=== PATIENT | male | born 1960 | race American Indian/Alaskan Native ===

== ENCOUNTER 2020-08-12 05:56 | Day surgery (SDC) | payer MEDICAID ==
[~2020-08-12 05:56] MED LIST: Midazolam 1 MG/ML 2 ML SDV ONE; fentaNYL 100 MCG/2 ML SDV ONE
[2020-08-12] MEDS ORDERED: Midazolam 1 MG/ML 2 ML SDV IV ONE ×7 (05:57→07:47)
[2020-08-12] MEDS ORDERED: fentaNYL 100 MCG/2 ML SDV IV ONE ×5 (05:57→07:49)
[2020-08-12] MEDS ORDERED: Dextrose 5%-0.45% NaCl 1,000 ML IV SCH (06:45)
--- NOTE | 2020-08-12 10:53 | OR ---
DATE: 08/12/2020 PROCEDURE: Total colonoscopy. INSTRUMENT USED: [id number] Olympus video colonoscope. PREMEDICATIONS: Fentanyl 150 mcg intravenous, Versed 4 mg intravenous, nasal O2 cannula. The procedure was done under pulse oximetry, BP recording, and monitoring tech. INDICATION: Screening colonoscopy examination is done for detection of any polypoid lesions and removal, endoscopic hemostasis therapy if needed. DESCRIPTION OF PROCEDURE: Initial rectal exam showed some diffuse mild tenderness. Rigid anoscopy showed moderate-sized internal hemorrhoids without bleeding from them. The colonoscope was passed with ease up to the ileocecal area. Photographs were taken of the normal-appearing cecum identified by landmarks of appendiceal orifice and double bulged ileocecal folds. No bleeding was noted from any of the visualized areas at the commencement of the examination. There was large amount of fecal material. Some solid in consistency limiting visualization of few areas, bowel preparation [place] scale 2 in all the regions, total score 6. No stricture. No vascular ectasia. No large isolated ulcerations seen. No evidence of diffuse inflammatory bowel disease in the form of friability, contact bleeding, or ulcerations. No polyp or tumor mass identified. Probing the proximal sides of folds and flexures using adequate distention and clearing up the stool material, withdrawal of the scope was made, cecum to rectum time over 6 minutes. No bleeding was noted from any of the visualized areas at the completion of examination. IMPRESSION: Internal hemorrhoids. The patient tolerated the procedure well. [facility] /[id number]
[2020-08-12 12:12] VITALS: BP 118/88; PULSE 70
== END 2020-08-12 09:06 | disposition home or self-care (01) ==
LOC: DL.ENDO 05:56
PROVIDERS: ATTEND Internal Medicine Gastroenterology
DX: Z12.11 Encounter for screening for malignant neoplasm of colon (principal); K64.8 Other hemorrhoids; E66.09 Other obesity due to excess calories; E11.9 Type 2 diabetes mellitus without complications; Z88.0 Allergy status to penicillin
CPT/HCPCS: J2250; J3010; J7042

== ENCOUNTER 2020-09-07 10:52 | Emergency (ER) | payer MEDICAID ==
[2020-09-07 10:58] VITALS: BP 133/92; PULSE 103
[2020-09-07 11:28] LABS: ACETAMINOPHEN 0 ug/mL (10-30 (Therapeutic)); ANION GAP 16.9 mEq/L (7-13); CHLORIDE,CL 105 mmol/L (98-107); SODIUM,NA 140 mmol/L (136-145)
--- NOTE | 2020-09-07 11:43 | CR ---
EXAMINATION: Chest 1V Frontal SEX: Male AGE: 60 years CLINICAL HISTORY: 60-year-old male complaining of CHEST PAIN. INTERPRETATION: 1. Old patchy left lower lobe atelectasis/fibrosis unchanged since CT exam 22 July 2020. 2. No new atelectasis or collapse. No alveolar consolidation or peripheral "groundglass" interstitial lung densities. 3. No lung mass or hilar/mediastinal lymphadenopathy. 4. Normal cardiac silhouette. Left-sided aortic arch. Atrophic spondylosis lower thoracic spine. 5. No pneumothorax or pneumomediastinum. Normal midline tracheal bronchial airway. No free subdiaphragmatic air. CONCLUSION: No acute new cardiopulmonary abnormality.
--- NOTE | 2020-09-07 12:32 | EDM.PDOC ---
ED HPI GENERAL MEDICAL PROBLEM - General Chief Complaint: Chest Pain Stated Complaint: CHEST PAIN Time Seen by Provider: 09/07/20 11:05 Source of Information: Reports: Patient History Limitations: Reports: No Limitations - History of Present Illness INITIAL COMMENTS - FREE TEXT/NARRATIVE: This 60 yo male patient reports to the ED due to intermittent left sided chest pain, left shoulder pain and left arm weakness. The patient reports his symptoms have been coming and going for the past 2-3 weeks. The patient reports he did talk to his primary care provider about his symptoms, but nothing was done for him. Onset: Unknown/Unsure Duration: Week(s): Location: Reports: Chest, Upper Extremity, Left Quality: Reports: Ache, Dull Severity: Moderate Improves with: Reports: None Worsens with: Reports: None Context: Reports: Other Associated Symptoms: Reports: No Other Symptoms Chest Pain Score (Numeric/FACES): 8 - Related Data Allergies Allergy/AdvReac Type Severity Reaction Status Date / Time penicillin Allergy Hives Verified 08/12/20 06:30 Home Meds: Home Meds Ibuprofen 800 mg PO DAILY PRN 11/04/14 [History] Thiamine HCl [Vitamin B-1] 100 mg PO DAILY 08/10/20 [History] Past Medical History HEENT History: Reports: Impaired Vision Cardiovascular History: Reports: Angina Respiratory History: Reports: None Gastrointestinal History: Reports: Cirrhosis, Diverticulosis, Hepatitis, Other (See Below) Other Gastrointestinal History: HX OF CHRONIC HEP C Genitourinary History: Reports: None Musculoskeletal History: Reports: Other (See Below) Other Musculoskeletal History: TMJ Neurological History: Reports: None Psychiatric History: Reports: Addiction, Other (See Below) Other Psychiatric History: S/P ALCOHOL HABITUATION. S/P INTRAVENOUS DRUG USE Endocrine/Metabolic History: Reports: Diabetes, Type II, Obesity/BMI 30+ Hematologic History: Reports: None Immunologic History: Reports: None Oncologic (Cancer) History: Reports: None Dermatologic History: Reports: None - Infectious Disease History Infectious Disease History: Reports: Chicken Pox, Hepatitis C - Past Surgical History Head Surgeries/Procedures: Reports: None HEENT Surgical History: Reports: None Cardiovascular Surgical History: Reports: None Respiratory Surgical History: Reports: None GI Surgical History: Reports: Colonoscopy, EGD Male Surgical History: Reports: None Endocrine Surgical History: Reports: None Neurological Surgical History: Reports: None Musculoskeletal Surgical History: Reports: None Oncologic Surgical History: Reports: None Dermatological Surgical History: Reports: None Social & Family History - Family History Family Medical History: No Pertinent Family History - Tobacco Use Tobacco Use Status *Q: Current Every Day Tobacco User Years of Tobacco use: 1 Packs/Tins Daily: 1 - Caffeine Use Caffeine Use: Reports: Coffee Other Caffeine Use: 1 CUP COFFEE DAILY - Recreational Drug Use Recreational Drug Use: No ED ROS GENERAL - Review of Systems Review Of Systems: Comprehensive ROS is negative, except as noted in HPI. ED EXAM, GENERAL - Physical Exam Exam: See Below Exam Limited By: No Limitations General Appearance: Alert, WD/WN, Mild Distress Eye Exam: Bilateral Eye: EOMI, Normal Inspection, PERRL Ears: Normal External Exam, Normal Canal, Hearing Grossly Normal, Normal TMs Nose: Normal Inspection, Normal Mucosa, No Blood Throat/Mouth: Normal Inspection, Normal Lips, Normal Teeth, Normal Gums, Normal Oropharynx, Normal Voice, No Airway Compromise Head: Atraumatic, Normocephalic Neck: Normal Inspection, Supple, Non-Tender, Full Range of Motion Respiratory/Chest: No Respiratory Distress, Lungs Clear, Normal Breath Sounds, No Accessory Muscle Use, Chest Non-Tender Cardiovascular: Normal Peripheral Pulses, Regular Rate, Rhythm, No Edema, No Gallop, No JVD, No Murmur, No Rub GI/Abdominal: Normal Bowel Sounds, Soft, Non-Tender, No Organomegaly, No Distention, No Abnormal Bruit, No Mass (Male) Exam: Deferred Rectal (Males) Exam: Deferred Back Exam: Normal Inspection, Full Range of Motion, NT Extremities: Normal Inspection, Normal Range of Motion, Non-Tender, Normal Capillary Refill, No Pedal Edema Neurological: Alert, Oriented, CN II-XII Intact, Normal Cognition, Normal Gait, Normal Reflexes, No Motor/Sensory Deficits Psychiatric: Normal Affect, Normal Mood Skin Exam: Warm, Dry, Intact, Normal Color, No Rash Lymphatic: No Adenopathy #1 Interpretation EKG Date: 09/07/20 Time: 10:49 Rhythm: NSR (With PAC) Rate (Beats/Min): 102 [place]: Normal P-Wave: Present QRS: Normal ST-T: Normal QT: Normal Comparison: NA - No Prior EKG Course - Vital Signs Last Recorded V/S: Last Vital Signs Temp 98 F 09/07/20 10:54 Pulse 103 H 07/27/21 10:54 Resp 18 09/07/20 10:54 BP 133/92 H 09/07/20 10:54 Pulse Ox 96 09/07/20 10:54 - Orders/Labs/Meds Orders: Active Orders 24 hr Category Date Time Status EKG Documentation Completion [RC] STAT Care 09/07/20 10:56 Active Labs: Laboratory Tests 09/07/20 09/07/20 09/07/20 Range/Units 11:00 11:00 11:00 WBC 5.6 (5.0-10.0) 10^3/uL RBC 5.13 (4.6-6.2) 10^6/uL Hgb 15.7 (14.0-18.0) g/dL Hct 45.7 (40.0-54.0) % MCV 89.1 (80-100) fL MCH 30.6 (27.0-34.0) pg MCHC 34.4 (33.0-35.0) g/dL Plt Count 168 (150-450) 10^3/uL Neut % (Auto) 59.8 (42.2-75.2) % Lymph % (Auto) 26.9 (20.5-50.1) % [place] % (Auto) 9.0 H (2-8) % Eos % (Auto) 3.9 H (1.0-3.0) % Baso % (Auto) 0.4 (0.0-1.0) % Sodium 140 (136-145) mmol/L Potassium 3.9 (3.5-5.1) mmol/L Chloride 105 (98-107) mmol/L Carbon Dioxide 22 (21-32) mmol/L Anion Gap 16.9 H (7-13) mEq/L BUN 18 (7-18) mg/dL Creatinine 1.13 (0.70-1.30) mg/dL Est Cr Clr Drug Dosing 75.89 mL/min Estimated GFR (MDRD) > 60 BUN/Creatinine Ratio 15.9 (No establ ref range) Glucose 104 H (70-99) mg/dL Lactic Acid (0.4-2.0) mmol/L Calcium 8.6 (8.5-10.1) mg/dL Total Bilirubin 0.7 (0.2-1.0) mg/dL AST 48 H (15-37) U/L ALT 75 H (16-63) U/L Alkaline Phosphatase 75 (46-116) U/L Ammonia < 10 L (11-32) umol/L Troponin I High Sens 6 (<=76) pg/mL Total Protein 8.2 (6.4-8.2) g/dL Albumin 3.7 (3.4-5.0) g/dL Globulin 4.5 Albumin/Globulin Ratio 0.8 Acetaminophen 0 L (10-30 (Therapeutic)) ug/mL Ethyl Alcohol < 3 (0) mg/dL 09/07/20 Range/Units 11:00 WBC (5.0-10.0) 10^3/uL RBC (4.6-6.2) 10^6/uL Hgb (14.0-18.0) g/dL Hct (40.0-54.0) % MCV (80-100) fL MCH (27.0-34.0) pg MCHC (33.0-35.0) g/dL Plt Count (150-450) 10^3/uL Neut % (Auto) (42.2-75.2) % Lymph % (Auto) (20.5-50.1) % [place] % (Auto) (2-8) % Eos % (Auto) (1.0-3.0) % Baso % (Auto) (0.0-1.0) % Sodium (136-145) mmol/L Potassium (3.5-5.1) mmol/L Chloride (98-107) mmol/L Carbon Dioxide (21-32) mmol/L Anion Gap (7-13) mEq/L BUN (7-18) mg/dL Creatinine (0.70-1.30) mg/dL Est Cr Clr Drug Dosing mL/min Estimated GFR (MDRD) BUN/Creatinine Ratio (No establ ref range) Glucose (70-99) mg/dL Lactic Acid 1.0 (0.4-2.0) mmol/L Calcium (8.5-10.1) mg/dL Total Bilirubin (0.2-1.0) mg/dL AST (15-37) U/L ALT (16-63) U/L Alkaline Phosphatase (46-116) U/L Ammonia (11-32) umol/L Troponin I High Sens (<=76) pg/mL Total Protein (6.4-8.2) g/dL Albumin (3.4-5.0) g/dL Globulin Albumin/Globulin Ratio Acetaminophen (10-30 (Therapeutic)) ug/mL Ethyl Alcohol (0) mg/dL Departure - Departure Time of Disposition: 13:03 Disposition: Home, Self-Care 01 Condition: Fair Clinical Impression: Nonspecific chest pain, Left arm weakness Instructions: Nonspecific Chest Pain, Adult, [id number] Forms: ED Department Discharge Care Plan Goals: The patient was advised of the examination, lab, EKG and x-ray results during the visit. The patient was informed that a metallic foreign body was identified in his left arm (near the elbow joint). The patient was encouraged to follow-up with his primary care facility for his left upper extremity weakness. If the patient has any additional symptoms or concerns, the patient should either re turn to the emergency department or visit his primary care facility. Sepsis Event Note (ED) - Evaluation Sepsis Screening Result: No Definite Risk - Focused Exam Vital Signs: Vital Signs Temp Pulse Resp BP Pulse Ox 09/07/20 10:54 98 F 103 H 18 133/92 H 96 - My Orders Last 24 Hours: My Active Orders 09/07/20 10:56 EKG Documentation Completion [RC] STAT - Assessment/Plan Last 24 Hours: My Active Orders 09/07/20 10:56 EKG Documentation Completion [RC] STAT
--- NOTE | 2020-09-07 12:46 | CR ---
EXAMINATION: Humerus Lt SEX: Male AGE: 60 years CLINICAL HISTORY: 60-year-old male with possible foreign body (needle) in arm. Interpretation (2 views): 1. *Tiny 7.7 mm long, thin needle like foreign body located in the subcutaneous tissues antecubital fossa. 2. Gown/sleeve artifact over the left upper extremity (shoulder). Wristwatch. No other metallic foreign bodies. 3. Homogeneous normal bone density of the underlying humerus. 4. No sign of pathologic skeletal lesion, long bone fracture, left shoulder or elbow joint dislocation.
== END 2020-09-07 13:11 | disposition home or self-care (01) ==
LOC: DL.ED 10:52
DX: R07.9 Chest pain, unspecified (principal); R53.1 Weakness; E11.9 Type 2 diabetes mellitus without complications; E66.9 Obesity, unspecified; Z68.36 Body mass index [BMI] 36.0-36.9, adult; Z72.0 Tobacco use; Z88.0 Allergy status to penicillin
CPT/HCPCS: 36415; 71045; 73060-LT; 80053; 80143; 80307; 82140; 83605; 84484; 85025; 93005; 93010; 99284; 99285-25

== ENCOUNTER 2023-04-11 16:37 | Emergency (ER) | payer MEDICAID ==
[2023-04-11] MEDS ORDERED: Sodium Chloride 0.9% 10 ML Syringe FLUSH PRN (17:51)
[2023-04-11 18:13] LABS: BASOPHILS PERCENT AUTO 0.4 % (0.0-1.0); EOSINOPHILS PERCENT AUTO 3.9 % (1.0-3.0); HEMATOCRIT 47.3 % (40.0-54.0); HEMOGLOBIN 16.2 g/dL (14.0-18.0); LYMPHOCYTES PERCENT AUTO 25.9 % (20.5-50.1); MEAN CORPUSCULAR HGB CONC 34.2 g/dL (33.0-35.0); MEAN CORPUSCULAR VOLUME 93.3 fL (80-100); MONOCYTES PERCENT AUTO 12.6 % (2-8); NEUTROPHILS PERCENT AUTO 57.2 % (42.2-75.2); PLATELET COUNT,PLT 150 10^3/uL (150-450); RED BLOOD CELL COUNT 5.07 10^6/uL (4.6-6.2); WHITE BLOOD CELL COUNT,WBC 4.6 10^3/uL (5.0-10.0)
[2023-04-11 18:30] LABS: ALANINE AMINOTRANSFERASE,ALT 119 U/L (16-63); ALBUMIN 2.9 g/dL (3.4-5.0); ALKALINE PHOSPHATASE 128 U/L (46-116); ANION GAP 11.9 mEq/L (7-13); ASPARTATE AMNIOTRANSFERASE,AST 104 U/L (15-37); BILIRUBIN TOTAL 0.6 mg/dL (0.2-1.0); BLOOD UREA NITROGEN,BUN 12 mg/dL (7-18); BUN/CREATININE RATIO 14.3 (No establ ref range); CALCIUM 8.3 mg/dL (8.5-10.1); CARBON DIOXIDE,CO2 26 mmol/L (21-32); CHLORIDE,CL 106 mmol/L (98-107); CREATININE 0.84 mg/dL (0.70-1.30); LACTIC ACID 1.3 mmol/L (0.4-2.0); POTASSIUM,K 3.9 mmol/L (3.5-5.1); PROTEIN TOTAL,TP 8.1 g/dL (6.4-8.2); SODIUM,NA 140 mmol/L (136-145)
[2023-04-11 18:35] VITALS: BP 160/104; PULSE 95
[2023-04-11 18:37] LABS: GLUCOSE RANDOM 99 mg/dL (70-99)
[2023-04-11 18:38] LABS: A/G RATIO 0.56; C-REACTIVE PROTEIN < 0.50 ng/dL (<=0.50); ESTIMATED GFR 99 mL/min (>=60)
[2023-04-11 18:46] LABS: PROTHROMBIN TIME 10.6 SEC (9.0-12.0); PTT,PARTIAL THROMBOPLSTIN TIME 25.5 SEC (22.0-34.0)
== END 2023-04-11 18:40 | disposition left against medical advice (07) ==
LOC: DL.ED 16:37
DX: R07.89 Other chest pain (principal); M25.562 Pain in left knee; E66.9 Obesity, unspecified; E11.9 Type 2 diabetes mellitus without complications; Z88.0 Allergy status to penicillin; Z79.899 Other long term (current) drug therapy; Z68.32 Body mass index [BMI] 32.0-32.9, adult
CPT/HCPCS: 36415; 71045; 80053; 83605; 83735; 84484; 85025; 85610; 85730; 86140; 93005; 93010; 99284; 99285

== ENCOUNTER 2024-02-06 10:23 | Emergency (ER) | payer MEDICAID, OTHER ==
[2024-02-06 10:53] LABS: BASOPHILS PERCENT AUTO 0.5 % (0.0-1.0); EOSINOPHILS PERCENT AUTO 5.2 % (1.0-3.0); LYMPHOCYTES PERCENT AUTO 18.3 % (20.5-50.1); MEAN CORPUSCULAR HEMOGLOBIN 31.2 pg (27.0-34.0); MEAN CORPUSCULAR HGB CONC 33.3 g/dL (33.0-35.0); MEAN CORPUSCULAR VOLUME 93.5 fL (80-100); MONOCYTES PERCENT AUTO 12.4 % (2-8); NEUTROPHILS PERCENT AUTO 63.6 % (42.2-75.2); PLATELET COUNT,PLT 107 10^3/uL (150-450); RED BLOOD CELL COUNT 4.49 10^6/uL (4.6-6.2); WHITE BLOOD CELL COUNT,WBC 4.3 10^3/uL (5.0-10.0)
[2024-02-06 11:15] LABS: ALBUMIN 2.4 g/dL (3.4-5.0); ANION GAP 16.4 mEq/L (7-13); BILIRUBIN TOTAL 0.8 mg/dL (0.2-1.0); BUN/CREATININE RATIO 14.7 (No establ ref range); CALCIUM 7.8 mg/dL (8.5-10.1); CREATININE 0.75 mg/dL (0.70-1.30); EST CRCL DRUG DOSING (CG) 106.8 mL/min; POTASSIUM,K 3.4 mmol/L (3.5-5.1); PROTEIN TOTAL,TP 7.7 g/dL (6.4-8.2)
[2024-02-06 11:17] LABS: A/G RATIO 0.45
[2024-02-06 12:59] LABS: AMPHETAMINES,URINE POSITIVE (NEGATIVE); BARBITURATES,URINE NEGATIVE (NEGATIVE); BENZODIAZEPINE,URINE NEGATIVE (NEGATIVE); MDMA (ECSTASY), URINE NEGATIVE (NEGATIVE); METHADONE,URINE NEGATIVE (NEGATIVE); METHAMPHETAMINES,URINE POSITIVE (NEGATIVE); OPIATES,URINE NEGATIVE (NEGATIVE); OXYCODONE,URINE NEGATIVE (NEGATIVE); PHENCYCLIDINE,URINE NEGATIVE (NEGATIVE); TCA,URINE NEGATIVE (NEGATIVE)
[2024-02-06] MEDS: Tetracaine HCl/PF 0.5% 4 ML Bottle ONE (13:15)
[2024-02-06] MEDS: Tetracaine HCl/PF 0.5% 4 ML Bottle EYEBOTH ONE (13:15)
[2024-02-06] MEDS: MVI, Adult with Vitamin K 10 ML, Folic Acid 1 MG, Thiamine 100 MG in Lactated Ringers 1... IV ONE (15:26)
[2024-02-06 16:16] VITALS: BP 149/70; PULSE 69
== END 2024-02-06 16:42 | disposition other institution (70) ==
LOC: DL.ED 10:23
DX: H05.332 Deformity of left orbit due to trauma or surgery (principal); H50.6 Mechanical strabismus; E11.9 Type 2 diabetes mellitus without complications; E66.9 Obesity, unspecified; Z88.0 Allergy status to penicillin; Z79.899 Other long term (current) drug therapy; Z68.33 Body mass index [BMI] 33.0-33.9, adult; Y04.0XXA Assault by unarmed brawl or fight, initial encounter
CPT/HCPCS: 36415; 70450; 70486; 80053; 80305-QW; 80307; 85025; 96365; 99285-25; J3411; J3490; J7120

== ENCOUNTER 2024-02-17 17:18 | Emergency (ER) | payer OTHER ==
[2024-02-17 17:33] VITALS: BP 156/101; PULSE 78
[2024-02-17] MEDS: Take Home: Acetaminophen/oxyCODONE 325-5 MG, 5 Tab Pack PO ONE (17:42)
== END 2024-02-17 17:50 | disposition home or self-care (01) ==
LOC: DL.ED 17:18
DX: H57.12 Ocular pain, left eye (principal); E11.9 Type 2 diabetes mellitus without complications; E66.9 Obesity, unspecified; Z79.899 Other long term (current) drug therapy; Z88.0 Allergy status to penicillin; Z98.890 Other specified postprocedural states; Z68.31 Body mass index [BMI] 31.0-31.9, adult
CPT/HCPCS: 99283; A9270

== ENCOUNTER 2024-02-19 11:03 | Emergency (ER) | payer OTHER ==
[2024-02-19 11:06] VITALS: BP 126/65; PULSE 69
[2024-02-19] MEDS: Ketorolac 30 MG/ML SDV IM ONE (11:33)
== END 2024-02-19 11:47 | disposition home or self-care (01) ==
LOC: DL.ED 11:03
DX: H57.12 Ocular pain, left eye (principal); E11.9 Type 2 diabetes mellitus without complications; E66.9 Obesity, unspecified; Z79.899 Other long term (current) drug therapy; Z88.0 Allergy status to penicillin; Z68.31 Body mass index [BMI] 31.0-31.9, adult
CPT/HCPCS: 96372; 99283; J1885

== ENCOUNTER 2024-02-21 06:58 | Emergency (ER) | payer SELFPAY ==
[2024-02-21] MEDS ORDERED: Sodium Chloride 0.9% 10 ML Syringe FLUSH PRN (07:20)
[2024-02-21] MEDS: Iopamidol 612 MG/ML 100 ML Bottle IVPUSH ONE (07:20)
[2024-02-21 07:48] VITALS: BP 128/80; PULSE 95
[2024-02-21 07:48] LABS: BASOPHILS PERCENT AUTO 0.5 % (0.0-1.0); EOSINOPHILS PERCENT AUTO 4.9 % (1.0-3.0); HEMATOCRIT 38.2 % (40.0-54.0); HEMOGLOBIN 13.2 g/dL (14.0-18.0); LYMPHOCYTES PERCENT AUTO 26.9 % (20.5-50.1); MEAN CORPUSCULAR HEMOGLOBIN 31.4 pg (27.0-34.0); MEAN CORPUSCULAR HGB CONC 34.6 g/dL (33.0-35.0); MEAN CORPUSCULAR VOLUME 90.7 fL (80-100); MONOCYTES PERCENT AUTO 12.8 % (2-8); NEUTROPHILS PERCENT AUTO 54.9 % (42.2-75.2); PLATELET COUNT,PLT 120 10^3/uL (150-450); RED BLOOD CELL COUNT 4.21 10^6/uL (4.6-6.2); WHITE BLOOD CELL COUNT,WBC 4.3 10^3/uL (5.0-10.0)
[2024-02-21 08:11] LABS: ALANINE AMINOTRANSFERASE,ALT 56 U/L (16-63); ALBUMIN 2.5 g/dL (3.4-5.0); ALKALINE PHOSPHATASE 134 U/L (46-116); ANION GAP 15.9 mEq/L (7-13); ASPARTATE AMNIOTRANSFERASE,AST 54 U/L (15-37); BILIRUBIN TOTAL 0.3 mg/dL (0.2-1.0); BLOOD UREA NITROGEN,BUN 16 mg/dL (7-18); CALCIUM 7.8 mg/dL (8.5-10.1); CARBON DIOXIDE,CO2 21 mmol/L (21-32); CHLORIDE,CL 109 mmol/L (98-107); CREATININE 0.89 mg/dL (0.70-1.30); EST CRCL DRUG DOSING (CG) 92.83 mL/min; GLUCOSE RANDOM 150 mg/dL (70-99); MAGNESIUM 1.9 mg/dL (1.8-2.4); POTASSIUM,K 2.9 mmol/L (3.5-5.1); PROTEIN TOTAL,TP 7.1 g/dL (6.4-8.2); SODIUM,NA 143 mmol/L (136-145)
[2024-02-21 08:14] LABS: A/G RATIO 0.54; ESTIMATED GFR 98 mL/min (>=60); ETHANOL BLOOD MEDICAL < 3 mg/dL (0)
[2024-02-21] MEDS: Potassium Chloride 10 MEQ Tab.ER PO ONE (08:33)
[2024-02-21] MEDS: Erythromycin Base 0.5% Ophth Oint 3.5 GM Tube EYELF ONE (09:40)
[2024-02-21 09:44] LABS: AMPHETAMINES,URINE NEGATIVE (NEGATIVE); BARBITURATES,URINE NEGATIVE (NEGATIVE); BENZODIAZEPINE,URINE NEGATIVE (NEGATIVE); MDMA (ECSTASY), URINE NEGATIVE (NEGATIVE); METHADONE,URINE NEGATIVE (NEGATIVE); METHAMPHETAMINES,URINE POSITIVE (NEGATIVE); OPIATES,URINE NEGATIVE (NEGATIVE); OXYCODONE,URINE NEGATIVE (NEGATIVE); PHENCYCLIDINE,URINE NEGATIVE (NEGATIVE); TCA,URINE POSITIVE (NEGATIVE)
== END 2024-02-21 09:55 | disposition home or self-care (01) ==
LOC: EEVIPCON 06:58 → DL.ED 06:58
DX: H57.12 Ocular pain, left eye (principal); E11.9 Type 2 diabetes mellitus without complications; E66.9 Obesity, unspecified; Z79.899 Other long term (current) drug therapy; Z88.0 Allergy status to penicillin
CPT/HCPCS: 36415; 70487; 80053; 80305; 80307; 83735; 85025; 99283; 99284; A9270; Q9967

== ENCOUNTER 2024-02-21 23:10 | Emergency (ER) | payer SELFPAY ==
[2024-02-21 23:17] VITALS: BP 158/88; PULSE 95
[2024-02-21] MEDS: Ketorolac 30 MG/ML SDV IM ONE (23:26)
[2024-02-21] MEDS: Acetaminophen 325 MG Tab PO ONE (23:27)
[2024-02-21] MEDS: Erythromycin Base 0.5% Ophth Oint 3.5 GM Tube EYELF ONE (23:35)
== END 2024-02-21 23:44 | disposition home or self-care (01) ==
LOC: DL.ED 23:10
DX: H57.12 Ocular pain, left eye (principal); F19.10 Other psychoactive substance abuse, uncomplicated; E11.9 Type 2 diabetes mellitus without complications; E66.9 Obesity, unspecified; Z79.899 Other long term (current) drug therapy; Z88.0 Allergy status to penicillin; Z68.32 Body mass index [BMI] 32.0-32.9, adult
CPT/HCPCS: 96372; 99283; A9270; J1885

== ENCOUNTER 2024-02-23 09:40 | Emergency (ER) | payer SELFPAY ==
[2024-02-23] MEDS ORDERED: Timolol Maleate 0.5% Ophth Soln 5 ML Bottle EYEBOTH ONE (09:41)
[2024-02-23] MEDS ORDERED: Brimonidine 0.2% Ophth Soln 5 ML Bottle EYEBOTH ONE (09:41)
[2024-02-23] MEDS ORDERED: Dorzolamide 2% Ophth Soln 10 ML Bottle EYEBOTH ONE (09:41)
[2024-02-23] MEDS: Fluorescein 1 MG Ophth Strip EYEBOTH ONE (11:00)
[2024-02-23] MEDS: Proparacaine 0.5% Ophth Soln 15 ML Bottle EYEBOTH ONE (11:00)
[2024-02-23] MEDS: Acetaminophen 500 MG Tab PO ONE (11:05)
[2024-02-23] MEDS ORDERED: Sodium Chloride 0.9% 10 ML Syringe FLUSH PRN (11:20)
[2024-02-23] MEDS ORDERED: Naloxone 2 MG/2 ML Syringe IVPUSH PRN (11:28)
[2024-02-23 11:43] LABS: BASOPHILS PERCENT AUTO 0.4 % (0.0-1.0); EOSINOPHILS PERCENT AUTO 2.1 % (1.0-3.0); HEMATOCRIT 41.7 % (40.0-54.0); HEMOGLOBIN 14.6 g/dL (14.0-18.0); LYMPHOCYTES PERCENT AUTO 19.4 % (20.5-50.1); MEAN CORPUSCULAR HEMOGLOBIN 31.6 pg (27.0-34.0); MEAN CORPUSCULAR VOLUME 90.3 fL (80-100); MONOCYTES PERCENT AUTO 9.2 % (2-8); NEUTROPHILS PERCENT AUTO 68.9 % (42.2-75.2); PLATELET COUNT,PLT 137 10^3/uL (150-450); RED BLOOD CELL COUNT 4.62 10^6/uL (4.6-6.2); WHITE BLOOD CELL COUNT,WBC 5.3 10^3/uL (5.0-10.0)
[2024-02-23 11:46] LABS: ANION GAP 12.2 mEq/L (7-13); BLOOD UREA NITROGEN,BUN 7 mg/dL (7-18); CALCIUM 8.4 mg/dL (8.5-10.1); CARBON DIOXIDE,CO2 27 mmol/L (21-32); CHLORIDE,CL 104 mmol/L (98-107); CREATININE 0.77 mg/dL (0.70-1.30); GLUCOSE RANDOM 156 mg/dL (70-99); POTASSIUM,K 3.2 mmol/L (3.5-5.1); SODIUM,NA 140 mmol/L (136-145)
[2024-02-23 11:47] LABS: C-REACTIVE PROTEIN < 0.50 ng/dL (<=0.50); ESTIMATED GFR 102 mL/min (>=60)
[2024-02-23] MEDS: Morphine 2 MG/ML SYRINGE IVPUSH ONE ×2 (11:50→13:28)
[2024-02-23] MEDS: Ondansetron 4 MG/2 ML SDV IVPUSH ONE (11:51)
[2024-02-23 12:03] LABS: INR 1.1 (0.9-1.2); PROTHROMBIN TIME 10.9 SEC (9.0-12.0); PTT,PARTIAL THROMBOPLSTIN TIME 25.9 SEC (22.0-34.0)
[2024-02-23] MEDS: Water For Injection, Sterile 10 ML SDV INJECT ONE (12:18)
[2024-02-23] MEDS: acetaZOLAMIDE 500 MG Vial IVPUSH ONE (12:19)
[2024-02-23] MEDS: Potassium Chloride 10 MEQ Tab.ER PO ONE (13:21)
[2024-02-23] MEDS: Timolol Maleate 0.5% Ophth Soln 5 ML Bottle EYEBOTH ONE (13:24)
[2024-02-23] MEDS: Potassium Chloride 20 MEQ in Premix Bag 1 BAG IV ONE (13:24)
[2024-02-23] MEDS ORDERED: Brimonidine 0.2% Ophth Soln 5 ML Bottle EYEBOTH SCH (14:00)
[2024-02-23] MEDS ORDERED: Dorzolamide 2% Ophth Soln 10 ML Bottle EYELF SCH (14:00)
[2024-02-23 14:12] VITALS: BP 139/84; PULSE 63
== END 2024-02-23 14:15 | disposition home or self-care (01) ==
LOC: DL.ED 09:40
DX: H54.7 Unspecified visual loss (principal); H40.9 Unspecified glaucoma; Q89.9 Congenital malformation, unspecified; R79.89 Other specified abnormal findings of blood chemistry; E66.9 Obesity, unspecified; Z88.0 Allergy status to penicillin; E11.9 Type 2 diabetes mellitus without complications; Z79.899 Other long term (current) drug therapy
CPT/HCPCS: 36415; 80048; 85025; 85610; 85730; 86140; 96374; 96375; 96376; 99283; A9270; J1120; J2270; J2405; J3490

== ENCOUNTER 2024-02-29 10:39 | Emergency (ER) | payer OTHER ==
[2024-02-29] MEDS: Acetaminophen 500 MG Tab PO ONE (14:06)
[2024-02-29] MEDS: Proparacaine 0.5% Ophth Soln 15 ML Bottle EYELF ONE (15:00)
[2024-02-29] MEDS: Proparacaine 0.5% Ophth Soln 15 ML Bottle ONE (16:20)
[2024-02-29] MEDS: acetaZOLAMIDE 500 MG Vial IVPUSH ONE (16:23)
[2024-02-29] MEDS: Brimonidine 0.2% Ophth Soln 5 ML Bottle EYELF ONE (16:39)
[2024-02-29 16:46] VITALS: BP 153/92; PULSE 57
== END 2024-02-29 17:22 | disposition home or self-care (01) ==
LOC: DL.ED 10:39
DX: H40.052 Ocular hypertension, left eye (principal); E11.9 Type 2 diabetes mellitus without complications; E66.9 Obesity, unspecified; Z68.31 Body mass index [BMI] 31.0-31.9, adult; Z88.0 Allergy status to penicillin; Z79.899 Other long term (current) drug therapy
CPT/HCPCS: 96374; 99283; A9270; J1120; J3490